=== PATIENT | female | born 1995 | race Caucasian/White ===

== ENCOUNTER → 2020-10-10 10:34 | Outpatient (CLI) | payer OTHER, SELFPAY ==
--- NOTE | 2020-10-10 10:37 | DI.US.S_ITS ---
PROCEDURE: US OB <= 14 WEEKS FETUS INDICATIONS: DATES OUTSIDE/PRIOR DATING DATA: First dating scan (date and location): 10/10/2020. Estimated date of delivery (JAVED) from first dating scan: 04/24/2021. TECHNIQUE: Real-time scanning was performed of the fetus and maternal pelvic organs, with image documentation. Endovaginal scanning was also performed to better visualize the fetus and maternal ovaries. COMPARISON: None. FINDINGS: Embryo: [place]-rump length measures 5.4 cm corresponding to 12 weeks 0 days. Heart rate: 165 beats per minute Measurement variability in dating: +/- 4 weeks by LMP, +/- 7 days by mean sac diameter (use before 6 weeks gestation if crown-rump length not able to be measured), +/- 5 days by crown-rump length (up to 8 weeks 6 days gestation), +/- 7 days by crown-rump length (up to 13 weeks 6 days gestation). Maternal organs: Ovaries not visualized. IMPRESSION: 12 week 0 day single living IUP. Dictated by: Derrick Andujar [facility] Interpreted: Bebeto Pedro MD on 10/10/2020 at 11:41 Transcribed by: JOSE on 10/10/2020 at 11:42 Approved by: Bebeto Pedro M.D. on 10/10/2020 at 14:46
== END ==
PROVIDERS: Referring Provider Specialist; Visit Provider Specialist
DX: Z34.81 Encounter for supervision of other normal pregnancy, first trimester (principal); Z3A.12 12 weeks gestation of pregnancy
CPT/HCPCS: 76801

== ENCOUNTER → 2020-10-22 14:06 | Outpatient (CLI) | payer OTHER, SELFPAY ==
[2020-10-22 14:35] LABS: Add Manual Diff / Slide Review NO; Basophils Absolute Auto 100 /uL (0-100); Basophils Percent Auto 1.3 % (0-2); Eosinophils Absolute Auto 200 /uL (0-450); Eosinophils Percent Auto 2.2 % (2-4); Hematocrit 35.5 % (36-46); Hemoglobin 11.9 g/dL (12.0-16.0); Lymphocytes Absolute Auto 1500 /uL (1100-4500); Lymphocytes Percent Auto 18.4 % (25-40); Mean Corpuscular HGB Conc 33.4 % (30-36); Mean Corpuscular Hemoglobin 27.7 PG (26-34); Mean Corpuscular Volume 82.9 fL (80-100); Monocytes Absolute Auto 600 /uL (0-900); Monocytes Percent Auto 7.4 % (3-14); Neutrophils Absolute Auto 5600 /uL (1500-7000); Neutrophils Percent Auto 70.7 % (50-75); Platelet Count 352 X10^3/uL (150-400); Red Blood Cell Count 4.29 X10^6/uL (4.0-5.2); White Blood Cell Count 7.9 X10^3/uL (4.5-11.0)
[2020-10-22 14:47] LABS: Hemoglobin A1C% w Est Avg Glu 5.4 % (4.0-6.0)
[2020-10-22 15:03] LABS: Glucose 79 mg/dL (70-100)
[2020-10-22 15:18] LABS: Free T4, Direct Thyroxine 1.02 ng/dL (0.78-2.19)
[2020-10-22 15:32] LABS: Thyroid Stimulating Hormone 2.79 uIU/mL (0.47-4.68)
[2020-10-23 06:10] LABS: RPR Screen Non Reactive (Non Reactive)
[2020-10-23 07:36] LABS: Varicella IgG Antibody <135 index (Immune >165)
[2020-10-24 12:13] LABS: Hepatitis B Surface Antigen NEGATIVE s/c (NEGATIVE); Rubella Antibody IgG 28.5 IU/mL (>15)
[2020-10-24 13:12] LABS: HIV 1 & 2 Ab/Ag 4th Gen Combo NEGATIVE (NEGATIVE); Hep C Virus Ab w/Reflex Quant NEGATIVE s/c (NEGATIVE)
== END ==
PROVIDERS: Referring Provider Specialist; Visit Provider Specialist
DX: Z34.81 Encounter for supervision of other normal pregnancy, first trimester (principal)
CPT/HCPCS: 36415; 80055; 82947; 83036; 84439; 84443; 86787; 86803; 86850; 86900; 86901; 87389

== ENCOUNTER → 2020-11-19 15:25 | Outpatient (CLI) | payer OTHER, SELFPAY ==
[2020-11-19 19:37] LABS: Appearance Urine UA CLOUDY; Bilirubin Urine UA NEGATIVE (NEGATIVE); Color Urine UA YELLOW; Glucose Urine UA NEGATIVE (Negative); Ketones Urine UA TRACE (NEGATIVE); Leukocyte Esterase Urine UA NEGATIVE (NEGATIVE); Nitrite Urine UA NEGATIVE (Negative); Occult Blood Urine UA NEGATIVE (Negative); Protein Urine UA TRACE (Negative); Specific Gravity Urine UA 1.025 (1.000-1.035); Urobilinogen Urine UA 0.2 E.U./dL (0.2)
[2020-11-21 19:36] LABS: AFP, Serum 26.4 ng/mL (.); Calc Gestational Age Ultrasound (.); Estriol, Free 1.11 ng/mL (.); Inhibin A, Dimeric 110.41 pg/mL (.); Inhibin A, MoM 0.84 (.); Maternal Ethnicity Other (.); Maternal Weight 197 lbs (.); Number of Fetuses No (.); OSBR Risk 1 IN 10000 (.); Results Report (.); Test Results *Screen Negative* (.); hCG, Serum 17205 mIU/mL (.)
== END ==
PROVIDERS: Visit Provider Specialist
DX: Z34.82 Encounter for supervision of other normal pregnancy, second trimester (principal); Z34.81 Encounter for supervision of other normal pregnancy, first trimester; Z3A.17 17 weeks gestation of pregnancy
CPT/HCPCS: 36415; 81003; 82105; 82677; 84702; 86336; 87086

== ENCOUNTER → 2020-12-11 12:53 | Outpatient (CLI) | payer OTHER, SELFPAY ==
--- NOTE | 2020-12-11 13:04 | DI.US.S_ITS ---
PROCEDURE: US OB >= 14 WEEKS FETUS INDICATIONS: ANATOMY OUTSIDE/PRIOR DATING DATA: First dating scan (date and location): 10/10/2020 . Estimated date of delivery (JAVED) from first dating scan: 04/24/2026 . TECHNIQUE: Real-time scanning was performed of the fetus, with image documentation and biometric measurements. Endovaginal scanning: No COMPARISON: [facility], , OB >= 14 WEEKS FETUS, 11/19/2020, 15:29. FINDINGS: General: A single living intrauterine gestation is present. Presentation: Variable. Placenta: Placental position is anterior right lateral , without previa. Amniotic fluid index: 15.3 cm, normal range is 5-24 cm. heart rate: 155 beats per minute. Maternal cervical canal: 4.2 cm long. Normal lower limit is 2.5 cm. biometrics: Biparietal diameter: 21 weeks 3 days Head circumference: 21 weeks Abdominal circumference: 22 weeks 4 days Femur length: 20 weeks 6 days Estimated gestational age from initial scan: 20 weeks 6 days Composite gestational age from present scan: 21 weeks 3 days Estimated weight and percentile: 445 g; 87th percentile Measurement variability for biometric dating: +/- 7 days from 14 weeks to 15 weeks 6 days gestation, +/- 10 days from 16 weeks to 21 weeks 6 days gestation, +/- 2 weeks from 22 weeks to 27 weeks 6 days gestation, +/- 3 weeks for 28 weeks gestation or later. weight reference: 4500 g or EFW >90/95% is considered macrosomia or large for gestational age. EFW <10% is small for gestational age. EFW 5% or less is considered intra-uterine growth restriction. Anatomic survey: Neuro: Ventricles are non-dilated at less than 10 mm. Cisterna magna is normal at 3-11 mm. Cerebellum is normal in size and morphology. Nuchal skin fold: Normal at less than 6 mm between 14-21 weeks gestational age. Face: Nose and lips, facial profile are normal. Spine: Not well seen. Heart: 4-chambered heart is present, with normal ventricular outflow tracts. Diaphragm: Diaphragm is intact. Stomach: Left-sided stomach is present. Kidneys: No hydronephrosis. Normal is less than 5 mm in 2nd trimester, less than 7 mm in 3rd trimester. Cord: 3-vessel cord has orthotopic insertion. Bladder: Normal in size. Extremities: All 4 extremities identified. IMPRESSION: 1. Single living IUP redemonstrated and interval growth is upper limits of normal. 2. spine not well seen; otherwise normal anatomy. Dictated by: Derrick Andujar [facility] Interpreted: Juana Myles MD on 12/11/2020 at 16:34 Transcribed by: RAS on 12/11/2020 at 16:35 Approved by: Juana Myles M.D. on 12/11/2020 at 16:53
== END ==
PROVIDERS: Referring Provider Specialist; Visit Provider Specialist
DX: Z34.82 Encounter for supervision of other normal pregnancy, second trimester (principal); Z3A.21 21 weeks gestation of pregnancy
CPT/HCPCS: 76811

== ENCOUNTER → 2021-01-02 12:53 | Outpatient (CLI) | payer OTHER, SELFPAY ==
[2021-01-02 14:39] LABS: Hemoglobin 11.3 g/dL (12.0-16.0)
[2021-01-02 14:59] LABS: GTT (PREG) 1 Hour PP 50gm Dose 156 mg/dL (76-139)
== END ==
PROVIDERS: PCP Specialist; Referring Provider Specialist; Visit Provider Specialist
DX: Z34.82 Encounter for supervision of other normal pregnancy, second trimester (principal); Z3A.25 25 weeks gestation of pregnancy
CPT/HCPCS: 36415; 82950; 85014; 85018

== ENCOUNTER → 2021-01-22 08:49 | Outpatient (CLI) | payer OTHER, SELFPAY ==
[2021-01-22 10:30] LABS: Glucose Fasting Gestational 83 mg/dL (76-95)
[2021-01-22 11:16] LABS: Glucose 1 Hour Gest 139 mg/dL (76-180)
[2021-01-22 12:07] LABS: Glucose Tol Interp,Gestational INTERPRETATION
[2021-01-22 13:43] LABS: Glucose 3 Hour Gest 135 mg/dL (76-140)
[2021-01-22 14:58] LABS: Glucose 2 Hour Gest 119 mg/dL (76-155)
== END ==
PROVIDERS: Referring Provider Specialist; Visit Provider Specialist
DX: O99.810 Abnormal glucose complicating pregnancy (principal); Z3A.26 26 weeks gestation of pregnancy
CPT/HCPCS: 36415; 82951; 82952

== ENCOUNTER → 2021-03-27 11:37 | Outpatient (CLI) | payer OTHER, SELFPAY ==
[2021-03-28 10:37] LABS: Strep Grp B PCR NEG for Grp B Strep
== END ==
PROVIDERS: PCP Specialist; Referring Provider Specialist; Visit Provider Specialist
DX: Z34.83 Encounter for supervision of other normal pregnancy, third trimester; Z3A.36 36 weeks gestation of pregnancy
CPT/HCPCS: 87653

== ENCOUNTER 2021-04-14 21:57 | Inpatient (IN) | payer OTHER, SELFPAY ==
[2021-04-14 23:00] VITALS: BP 132/95
[2021-04-14] MEDS: LACTATED RINGERS 1,000 ML 100 ML IV (23:17)
[2021-04-14 23:49] LABS: COVID19 -Nasal RAPID Negative (Negative)
[2021-04-14 23:50] LABS: Add Manual Diff / Slide Review NO; Basophils Absolute Auto 100 /uL (0-100); Basophils Percent Auto 0.9 % (0-2); Eosinophils Absolute Auto 100 /uL (0-450); Eosinophils Percent Auto 0.7 % (2-4); Hematocrit 33.7 % (36-46); Hemoglobin 11.1 g/dL (12.0-16.0); Lymphocytes Absolute Auto 1500 /uL (1100-4500); Lymphocytes Percent Auto 14.2 % (25-40); Mean Corpuscular HGB Conc 33.1 % (30-36); Mean Corpuscular Hemoglobin 24.7 PG (26-34); Mean Corpuscular Volume 74.7 fL (80-100); Monocytes Absolute Auto 500 /uL (0-900); Monocytes Percent Auto 5.2 % (3-14); Neutrophils Absolute Auto 8400 /uL (1500-7000); Platelet Count 354 X10^3/uL (150-400); Red Blood Cell Count 4.51 X10^6/uL (4.0-5.2); Red Cell Distribution Width 16.6 % (11.6-14.8); White Blood Cell Count 10.6 X10^3/uL (4.5-11.0)
[2021-04-15] MEDS: FENT 2MCG/ML BUPIV 0.125% EPI 200 MCG/100 ML PLAST..BAG 12 MCG EPIDURAL
[2021-04-15] MEDS: LACTATED RINGERS 1,000 ML 100 ML IV (00:15)
--- NOTE | 2021-04-15 06:31 | PM.OBHP.1 ---
OB HPI Date/Time Date of admission: 04/14/21 Date Patient Seen: 04/14/21 Time Patient Seen: 22:30 History of Present Condition Chief complaint: contractions : 2 Para: 1 Estimated Date of Delivery: 04/24/21 Estimated Gestational Age (weeks): 38 Narrative: Hiral Becker is a 26 year old female admitted in active labor History of Present care: good care, initiated at week # (12), number of visits (10) and pounds weight gain (16) Dating criteria: based on 1st trimester US only Ultrasounds: normal mid trimester US Obstetrical complications: none Medical complications: none Preadmission Labs Blood type: O (+) positive -: Antibody screen: negative, GBS status: negative, HBsAG: negative, HIV: negative and RPR/VDLR: negative -: Chlamydia screen: not detected and Gonorrhea screen: not detected -: Rubella: immune and Varicella: not immune HCAB: negative Quad screen: Normal 1 hr GTT: 150 3 hr GTT: 1 hr (139), 2 hr (119) and 3 hr (135) Fasting blood glucose: 83 Prior (ies) History: 02/22/2019 39.4 WEEKS 7 LB 5 OZ FEMALE VAGINAL DELIVERY WITH EPIDURAL Evaluation Evaluation Baseline heart rate: 150 Variability: Moderate (11-25) monitor accelerations: Present Monitor Decelerations: Absent Contraction Frequency (minutes): 5 Uterine Contraction Intensity: Moderate Category of Tracing: Reactive Status: Category l Dilation (cm): 4 Effacement (%): 90 station: 0 Position of cervix: posterior Consistency: [facility] Medical History (Updated 10/15/20 @ 13:05 by Samara Davis RN) Anxiety (~01/2019) Depression History of being hospitalized Obesity Pre-diabetes (~2019) (spontaneous vaginal delivery) (~02/22/19) Surgical History (Updated 10/15/20 @ 12:43 by Samara Davis RN) History of incision and drainage [place] teeth extracted (~2017) Family History (Updated 10/15/20 @ 12:39 by Samara Davis RN) Father Hypertension Depression Anxiety Mother Hypertension Grandfather No problems noted. Grandmother Diabetes mellitus Hypertension Type 2 diabetes mellitus Grandfather Family estrangement Grandmother Diabetes mellitus Smoker Family estrangement Brother Mental health problem Anxiety Depression Sister Depression Anxiety Family/Other Cancer Breast cancer Family/Other Diabetes mellitus Type 2 diabetes mellitus Hypertension Social History marital status: number of children: 1 household members: spouse and children lives independently: Yes pets and animals: Yes (X 1 Dog) education level: college (A semester of College ) occupational status: employed (In the [employer] ) current occupational exposures/hazards: Yes special amber needs: No Smoking Status: Never smoker second hand exposure: No alcohol intake: former (pre- : social/on occasion/rare) substance use type: does not use Meds Home Medications and Allergies Home Medications Medication Instructions Recorded Confirmed Type ondansetron 4 mg disintegrating 4 mg PO Q6H #20 tab 10/15/20 04/03/21 Rx tablet vits no.126-ferrous fum 1 tab PO .COMPLEX #30 tab 10/15/20 04/03/21 Rx 28 mg iron-folic acid 800 mcg tablet (Classic ) docusate sodium 100 mg capsule 100 mg PO DAILY #30 cap 12/17/20 04/03/21 Rx (Dulcolax Stool Softener (docusate)) hydroxyzine pamoate 25 mg capsule 25 mg PO BEDTIME #30 cap 12/17/20 04/03/21 Rx Allergies Allergy/AdvReac Type Severity Reaction Status Date / Time No Known Drug Allergies Allergy Verified 10/15/20 12:12 Review of Systems Review of Systems Narrative: Good movement. No leakage of fluid. No headaches, scotomata, epigastric pain. OB Exam Narrative Exam Narrative: Blood pressure 126/95, pulse 101, temperature 97.4? HEENT exam within normal limits. Lungs are clear to auscultation percussion. Heart is regular rate and rhythm no S3-S4 murmurs. Abdomen is soft, nontender. Fetus is vertex. Extremities without it edema and nontender. Objective Labs Result Diagrams: 04/14/21 23:15 Labs: Laboratory Results - last 24 hr 04/14/21 04/14/21 04/14/21 23:00 23:15 23:15 WBC 10.6 RBC 4.51 Hgb 11.1 L Hct 33.7 L MCV 74.7 L MCH 24.7 L MCHC 33.1 RDW 16.6 H Plt Count 354 Neut % (Auto) 79.0 H Lymph % (Auto) 14.2 L [place]ke % (Auto) 5.2 Eos % (Auto) 0.7 L Baso % (Auto) 0.9 Neut # (Auto) 8400 H Lymph # (Auto) 1500 Cocke # (Auto) 500 Eos # (Auto) 100 Baso # (Auto) 100 SARS-CoV-2 (PCR) Negative Blood Type O Positive Antibody Screen Negative Assessment and Plan Assessment and Plan Assessment and Plan narrative: 38 week gestation in active labor. Patient requesting epidural. Anticipate vaginal delivery.
[2021-04-15] MEDS: OXYTOCIN PREMIX 30 UNIT/500 ML PLAST..BAG 500 UNIT IV (07:46)
--- NOTE | 2021-04-15 08:16 | P.PCNOB_ITS ---
Labor & Delivery Delivery date: 04/15/21 Intrapartal Events: None Cervical ripening method: none Induction method: none Delivery monitor: external FHT and external uterine Route of delivery: L&D Laceration Description: None Estimated blood loss (mL): 100 Anesthesia Type: Epidural Narrative: Patient arrived on Labor and delivery in active labor. She received an epidural catheter for pain control. heart tones category 1 to category 2 throughout labor. She had a spontaneous vaginal delivery over an intact p erineum. Patient requested the baby be clean prior to putting on her abdomen. So the baby's cord was clamped, cut, and cord bloods obtained. The baby went to the warmer where the she was cleaned, dried, and placed on maternal chest skin to skin. The placenta delivered spontaneously, intact, with 3 vessels. There were no cervical, vaginal, or perineal tears. Both infant mother doing well. Stage I of labor approximately 12 hours, stage II 41 minutes, stage III 15 minutes. [place] Baby 1: Infant gender: Female Presentation: vertex Position: Right Occiput Anterior Placenta delivery description: Spontaneous Cord Vessel Description: 3 Vessels score (1 min): 9 score (5 min): 9 weight: 7 lb 13 oz Plan for aftercare: Routine care
[2021-04-15] MEDS: IBUPROFEN 600 MG TABLET PO ×2 (09:48→17:18)
[2021-04-15] MEDS: ACETAMINOPHEN 325 MG TABLET 650 MG PO ×2 (11:40→21:45)
[2021-04-15] MEDS: DOCUSATE 100 MG CAPSULE PO (17:41)
[2021-04-15] MEDS: LANOLIN OINT 7 GM 1 APPLIC TOP (21:45)
[2021-04-16] MEDS: IBUPROFEN 600 MG TABLET PO ×3 (02:25→15:43)
[2021-04-16] MEDS: OXYCODONE IR 10 MG TABLET PO (02:26)
[2021-04-16 08:02] LABS: Add Manual Diff / Slide Review NO; Basophils Absolute Auto 100 /uL (0-100); Basophils Percent Auto 0.5 % (0-2); Eosinophils Absolute Auto 200 /uL (0-450); Eosinophils Percent Auto 2.2 % (2-4); Hematocrit 30.1 % (36-46); Hemoglobin 9.9 g/dL (12.0-16.0); Lymphocytes Absolute Auto 2100 /uL (1100-4500); Lymphocytes Percent Auto 21.1 % (25-40); Mean Corpuscular HGB Conc 32.8 % (30-36); Mean Corpuscular Hemoglobin 24.5 PG (26-34); Mean Corpuscular Volume 74.9 fL (80-100); Monocytes Absolute Auto 800 /uL (0-900); Monocytes Percent Auto 7.7 % (3-14); Neutrophils Absolute Auto 6700 /uL (1500-7000); Neutrophils Percent Auto 68.5 % (50-75); Platelet Count 255 X10^3/uL (150-400); Red Blood Cell Count 4.02 X10^6/uL (4.0-5.2); Red Cell Distribution Width 16.7 % (11.6-14.8); White Blood Cell Count 9.8 X10^3/uL (4.5-11.0)
[2021-04-16] MEDS: ACETAMINOPHEN 325 MG TABLET 650 MG PO ×2 (09:00→15:43)
[2021-04-16] MEDS: DOCUSATE 100 MG CAPSULE PO (09:00)
--- NOTE | 2021-04-16 09:13 | PM.OBDS.1 ---
Discharge Providers Provider Date of admission: 04/14/21 21:57 Discharge Date: 04/16/21 Primary care physician: Tata Blanco MD Consults: 04/14/21 22:59 Consult to Anesthesiology Urgent Comment: Consulting Provider: Anesthesiologist Reason for consultation: Epidural Has provider been notified: No 04/16/21 08:13 Consult to Wad Impregnator Routine Comment: Discharge provider: Tata Blanco MD Summary Hospital Course Date Patient Seen: 04/16/21 Time Patient Seen: 09:13 Diagnoses: Vaginal delivery Hospital Course: Patient arrived on Labor and delivery in active labor. She received an epidural catheter for pain control. She had a spontaneous vaginal delivery. She is breast-feeding. She is urinating and ambulating well. Patient has a history anxiety and depression and has an appointment with her counselor next week and denies any suicidal ideations at this point. Patient is going to be working with her counselor and psychiatrist about medications now that she is not . Peripartum Data Infant Delivery Method: Natural Vaginal Laceration Description: None complications: none [place] 1: Gender: Female Disposition of : home Discharge Diagnosis (1) Vaginal delivery: Status: Acute Status at Discharge Cognitive/behavioral status at discharge: oriented Functional status at discharge: independent ambulation Overall status at discharge: patient is progressing back to baseline Time Spent with Patient Time attestation: Total time spent providing and/or coordinating discharge services: Time spent: Less than 30 minutes Objective Labs Result Diagrams: 04/16/21 06:40 Labs: Laboratory Results - last 24 hr 04/16/21 06:40 WBC 9.8 RBC 4.02 Hgb 9.9 L Hct 30.1 L MCV 74.9 L MCH 24.5 L MCHC 32.8 RDW 16.7 H Plt Count 255 Neut % (Auto) 68.5 Lymph % (Auto) 21.1 L Richardson % (Auto) 7.7 Eos % (Auto) 2.2 Baso % (Auto) 0.5 Neut # (Auto) 6700 Lymph # (Auto) 2100 Richardson # (Auto) 800 Eos # (Auto) 200 Baso # (Auto) 100 Exam Vital Signs (past 8 hours): Blood pressure 116/82, pulse of 80, temperature 98.1? Narrative Exam Narrative: Abdomen is soft, nontender. Uterus is firm, at U, minimally tender. Perineum is intact. Mild lochia. Extremities without edema and nontender. Patient's blood type is O-positive. She is rubella immune. She received Tdap in the 3rd trimester. Discharge Plan Discharge Plan Patient Disposition: Home Discharge orders & Medications Prescriptions: New ibuprofen 600 mg Tablet 600 mg PO Q6HR PRN (Reason: Pain, Mild (1-3)) Qty: 20 0RF oxycodone 10 mg Tablet 10 mg PO Q4HR PRN (Reason: Pain, Severe (7-10)) Qty: 10 0RF Continued docusate sodium [Dulcolax Stool Softener (dss)] 100 mg capsule 100 mg PO DAILY Qty: 30 3RF Classic 28 mg iron- 800 mcg tablet 1 tab PO .COMPLEX Qty: 30 11RF Rx Instructions: 1 tab PO; Discontinued hydroxyzine pamoate 25 mg capsule 25 mg PO BEDTIME Qty: 30 3RF ondansetron 4 mg tablet,disintegrating 4 mg PO Q6H Qty: 20 2RF Follow up/Referrals: Tata Blanco MD [Primary Care Provider] - 1 Month Diet/Activity/Treatments Diet: Regular Activity: Nothing in vagina until her post appointment Skin/Wound/Dressing Care Report to your healthcare provider any signs of infection, such as:: chills, fever and increased pain Discharge Data Primary Care Provider: Tata Blanco
[2021-04-16 16:09] VITALS: BP 122/81; PULSE 97; RESP 20; TEMP 36.6
== END 2021-04-16 16:02 | disposition home or self-care (01) | DRG 807 ==
PROVIDERS: Admitting Provider Specialist; PCP Specialist; Referring Provider Specialist; Visit Provider Specialist
DX: O60.14X0 Preterm labor third trimester with preterm delivery third trimester, not applicable or unspecified (principal); Z37.0 Single live birth; Z3A.38 38 weeks gestation of pregnancy; O99.344 Other mental disorders complicating childbirth; F41.9 Anxiety disorder, unspecified; F32.9 Major depressive disorder, single episode, unspecified; Z20.822 Contact with and (suspected) exposure to COVID-19
CPT/HCPCS: 01967; 36415; 59400; 85025; 86850; 86900; 86901; 87635; C9803; G0379; J2590